=== PATIENT | female | born 1955 | race Caucasian/White ===

== ENCOUNTER → 2018-07-10 | Outpatient (CLI) | payer OTHER | LOC: CIMAGING 07:47 | PROVIDERS: ATTEND Family Medicine | DX: R10.84 Generalized abdominal pain (principal) | CPT/HCPCS: 76705-PO ==

== ENCOUNTER 2018-10-13 12:22 | Emergency (ER) | payer OTHER ==
--- NOTE | 2018-10-13 12:41 | EDPHY ---
H & P Stated Complaint: Sent from PC, abnormal EKG, has arelis's disease Time Seen by Provider: 10/13/18 12:41 - Personal History Current Tetanus/Diphtheria Vaccine: Yes Current Tetanus Diphtheria and Acellular Pertussis (TDAP): Yes - Medical/Surgical History Hx Asthma: Yes Hx Chronic Respiratory Disease: No Hx Diabetes: No Hx Cardiac Disease: No Hx Renal Disease: No Hx Cirrhosis: No Hx Alcoholism: No Hx HIV/AIDS: No Hx Splenectomy or Spleen Trauma: No Other PMH: Cushings, asthma - Social History Smoking Status: Never smoked Constitutional: Initial Vital Signs Temperature (C) 36.8 C 10/13/18 12:24 Heart Rate 64 10/13/18 12:24 Respiratory Rate 16 10/13/18 12:24 Blood Pressure 178/105 H 10/13/18 12:24 O2 Sat (%) 100 10/13/18 12:24 O2 Delivery Mode Room Air Allergies/Adverse Reactions: grass pollen Allergy (Verified 03/13/15 19:59) mold Allergy (Verified 03/13/15 19:59) Home Medications: Medication Instructions Recorded Advair 100/50 (RX) 03/13/15 Baclofen 03/13/15 CeleBREX 03/13/15 Celebrex 03/13/15 Flexeril 03/13/15 Gabapentin 03/13/15 Sulfamethox/Tmp 800/160 mg 1 tab PO 03/13/15 [Bactrim Ds] Medical Decision Making ED Course/Re-evaluation: CHIEF COMPLAINT: Cortisol crisis, abnormal EKG HISTORY OF PRESENT ILLNESS: The patient is a 62 y/o female with a history of Latrogenic Arelis's Disease, Meera's type 3 (non-cardiac), and chronic pain arriving at the request of her PCP for an abnormal EKG. The patient states "I am in a Cortisol crisis after an infection in my foot, and my medication is not enough to handle it. My emergency medication is ". Her PCP advised that she double her dose of oral Prednisone, but this did not help her symptoms. She went to her PCP to get an emergency cortisol shot. While at her PCP she had an abnormal EKG and was advised to present to the emergency department. She reports that she normally has chest pain when she is in a cortisol crisis. She denies being seen in an emergency department for a crisis in the past, but she has been to [facility] ( yearly) for the Arelis's diagnosis. No fever, headache, body aches, lightheadedness, heart palpitations, shortness of breath, cough, abdominal pain , urinary or bowel complaints, numbness, paresthesias. REVIEW OF SYSTEMS: A comprehensive 10 system review of systems is otherwise negative aside from elements mentioned in the history of present illness and medical decision making. PHYSICAL EXAM: HR, BP, O2 Sat, RR. Temp noted General Appearance: Alert, well hydrated, appropriate, and non-toxic appearing. Head: Atraumatic without scalp tenderness or obvious injury Eyes: Pupils equal, round, reactive to light and accommodation, EOMI, no trauma , no injection. Ears: Clear bilaterally, no perforation, normal landmarks Nose: Atraumatic, no rhinorrhea, clear. Throat: There is no erythema or exudates, no lesions, normal tonsils, mucus membranes moist. Neck: Supple, 2+ carotid upstroke, nontender, no lymphadenopathy. Respiratory: No retractions, no distress, no wheezes, and no accessory muscle use. Lungs are clear to auscultation bilaterally. Cardiovascular: Regular rate and rhythm, no murmurs, rubs, or gallops. Bilateral carotid, radial, dorsalis pedis, and posterior tibial pulses intact. Good capillary refill all extremities. Gastrointestinal: Abdomen is soft, nontender, non-distended, no masses, no rebound, no guarding, no peritoneal signs. Musculoskeletal: Normal active ROM of all extremities, atraumatic. Neurological: Alert, appropriate, and interactive. The patient has normal DTRs and non-focal cranial nerves, motor, sensory, and cerebellar exam. Skin: No rashes, good turgor, no nodules on palpation. Past medical history: Latrogenic [place]'s Disease, Meera's type 3, asthma, and chronic pain Past surgical history: Denies Family history: Denies Social history: Lives in [place], , not employed DIAGNOSTICS/PROCEDURES/CRITICAL CARE TIME: EKG: The 12 lead EKG was interpreted by myself as sinus rhythm with a rate of 63. See hard copy and/or "tracemaster" electronic copy for interpretation. DIFFERENTIAL DIAGNOSIS: The differential diagnosis for the patient's chest pain included but was not limited to Addisonian crisis, arelis's crisis, myocardial ischemia, pulmonary embolus, chest wall pain, pleural inflammation, and pulmonary infectious causes. MEDICAL DECISION MAKING: The patient is a 62 y/o female with a history of Latrogenic Arelis's Disease, Meera's type 3 (non-cardiac), and chronic pain arriving at the request of her PCP for an abnormal EKG. The patient states "I am in a Cortisol crisis after an infection in my foot, and my medication is not enough to handle it. My emergency medication is ." While at her PCP's office for emergency medication, she had an abnormal EKG and was advised to present to the emergency department. She reports that she normally has chest pain when she is in a cortisol crisis. She has a normal physical exam. Labs and EKG ordered; 100mg IV Hydrocortisone administered. Patient' Meera's disease does not affect large vessels, so there is no need to further investigate this. 1241: I interpreted patient's EKG as sinus rhythm with a rate of 63. 1304: Patient's labs are unremarkable. I suspect she is having an Addisonian's crisis, not a Arelis's crisis. 1310: Reassessed patient and discussed laboratory and imaging findings. I have discussed taking additional steroids, which she will call the [facility] for. If she cannot get the steroids prescribed, I have advised her to call the ER back so I can prescribe her the necessary steroids. Return precautions provided ; patient is comfortable with this plan. - Data Points Laboratory Results: 10/13/18 10/13/18 13:02 12:44 POC Hgb 15.0 gm/dL gm/dL (12.6-16.3) POC Hct 44 % % (38-47) POC Sodium 132 mEq/L L mEq/L (135-145) POC Potassium 3.5 mEq/L mEq/L (3.3-5.0) POC Chloride 92 mEq/L L mEq/L (97-110) POC Total CO2 28 mEq/L mEq/L (22-31) POC BUN 11 mg/dL mg/dL (7-23) POC Creatinine 0.8 mg/dL mg/dL (0.6-1.0) POC Glucose 109 mg/dL H mg/dL (70-100) POC Troponin I 0.00 ng/mL ng/mL (0.00-0.08) Medications Given: Discontinued Medications Hydrocortisone (Solucortef) 100 mg IVP EDNOW ONE Stop: 10/13/18 12:54 Last Admin: 10/13/18 12:55 Dose: 100 mg Point of Care Test Results: Chemistry 10/13/18 10/13/18 13:02 12:44 POC Sodium 132 mEq/L L mEq/L (135-145) POC Potassium 3.5 mEq/L mEq/L (3.3-5.0) POC Chloride 92 mEq/L L mEq/L (97-110) POC Total CO2 28 mEq/L mEq/L (22-31) POC BUN 11 mg/dL mg/dL (7-23) POC Creatinine 0.8 mg/dL mg/dL (0.6-1.0) POC Glucose 109 mg/dL H mg/dL (70-100) POC Troponin I 0.00 ng/mL ng/mL (0.00-0.08) ISTAT H&H 10/13/18 13:02 POC Hgb 15.0 gm/dL gm/dL (12.6-16.3) POC Hct 44 % % (38-47) Departure - Departure Disposition: Home, Routine, Self-Care Clinical Impression: Addisonian crisis Condition: Good Instructions: [place] [facility] (ED) Additional Instructions: 1. If [facility] does not prescribe you additional steroid dosing, call the ER back so I can prescribe you some. 2. Follow-up with your primary doctor within 72 hours. 3. Return to the Emergency Department for fever, chest pain, shortness of breath , increasing pain or other worsening of condition. Referrals: GINA QUINN MD [Primary Care Provider] - As per Instructions Report Scribed for: Pedro Peterson Report Scribed by: Jolynn Morelos Date of Report: 10/13/18 Time of Report: 12:45
[2018-10-13] MEDS ORDERED: HYDROCORTISONE 100 MG/2 ML VIAL IVP ONE (12:53)
[2018-10-13 12:58] VITALS: BP 134/91
--- NOTE | 2018-10-13 20:44 | CPEKG ---
Test Reason : OPEN Blood Pressure : / mmHG Vent. Rate : 063 BPM Atrial Rate : 063 BPM P-R Int : 151 ms QRS Dur : 083 ms QT Int : 441 ms P-R-T Axes : 053 021 028 degrees QTc Int : 452 ms Sinus rhythm Probable left atrial enlargement Confirmed by Pedro Peterson ([id number] on 10/13/2018 8:43:41 PM Referred By: Pedro Peterson Confirmed By:Pedro Peterson
== END 2018-10-13 13:30 | disposition home or self-care (01) ==
DX: R94.31 Abnormal electrocardiogram [ECG] [EKG] (principal); E27.2 Addisonian crisis
CPT/HCPCS: 82435-PO; 82565-PO; 82947-PO; 84132-PO; 84295-PO; 84484-ER; 84520-PO; 85014-ER; 96374; J1720